=== PATIENT | male | born 1945 | race Caucasian/White ===

== ENCOUNTER 2017-08-01 10:26 | Inpatient (IN) | payer MEDICARE, BC ==
[2017-08-01] MEDS ORDERED: HYDROcodone/APAP 10-325MG 1 EACH TAB PO PRN (13:16)
[2017-08-01] MEDS ORDERED: DICLOFENAC SODIUM GEL 100 GM TUBE TOPICAL PRN (13:20)
[2017-08-01 13:57] LABS: Basophils # (A) 0.1 k/uL (0-0.2); Basophils % (A) 1 %; CHCM 33.6; Eosinophils # (A) 0.2 k/uL (0-0.7); Eosinophils % (A) 2 %; HCT 39.1 % (39.0-53.0); HDW 2.82; HGB 12.9 gm/dL (13.0-17.5); Luc # (Auto) 0.14; Luc % (Auto) 2; Lymphocytes # (A) 1.4 k/uL (1.0-4.8); Lymphocytes % (A) 22 %; MCH 30.7 pg (25.0-35.0); MCHC 33.1 g/dL (31.0-37.0); Mean Platelet Volume 7.9; Monocytes # (A) 0.4 k/uL (0-1.0); Monocytes % (A) 6 %; Neutrophils # (A) 4.3 k/uL (1.3-7.7); Neutrophils % (A) 68 %; RBC 4.21 m/uL (4.30-5.90); RDW 14.9 % (11.5-15.5); WBC 6.4 k/uL (3.8-10.6); WBC (Perox) 7.11
[2017-08-01 14:07] LABS: Calcium 9.6 mg/dL (8.4-10.2); Potassium 4.2 mmol/L (3.5-5.1); Total Bilirubin 0.6 mg/dL (0.2-1.3); Total Protein 6.8 g/dL (6.3-8.2)
[2017-08-01 14:12] LABS: INR 1.1 (<1.2); Prothrombin Time 10.8 sec (9.0-12.0)
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
[2017-08-01 14:26] VITALS: BMI 29.1
[2017-08-01] MEDS: 0.9% NACL WITH KCL 20 MEQ/L 1,000 ML IV SCH ×2 (14:57→21:23)
[2017-08-01] MEDS: HYDROcodone/APAP 10-325MG 1 EACH TAB PO PRN ×2 (15:59→21:23)
[2017-08-01] MEDS: PANTOPRAZOLE 40 MG TABLET PO SCH (17:57)
[2017-08-01] MEDS: amLODIPine 5 MG TAB PO SCH (20:25)
[2017-08-01] MEDS: HYDROCHLOROTHIAZIDE 25 MG TAB PO SCH (20:25)
[2017-08-01] MEDS: LATANOPROST 0.005% OPHTH DROPS 2.5 ML BTL LEFT EYE SCH (20:25)
[2017-08-01 23:28] VITALS: RESP 18
[2017-08-02] MEDS: HYDROcodone/APAP 10-325MG 1 EACH TAB PO PRN ×3 (05:05→18:22)
[2017-08-02] MEDS: 0.9% NACL WITH KCL 20 MEQ/L 1,000 ML IV SCH (05:11)
[2017-08-02 08:50] LABS: Basophils % (A) 1 %; CH 31.9; CHCM 33.6; Eosinophils # (A) 0.2 k/uL (0-0.7); Eosinophils % (A) 4 %; HCT 37.8 % (39.0-53.0); HDW 2.93; HGB 12.1 gm/dL (13.0-17.5); Luc # (Auto) 0.15; Luc % (Auto) 3; Lymphocytes # (A) 1.3 k/uL (1.0-4.8); Lymphocytes % (A) 25 %; MCH 30.5 pg (25.0-35.0); MCV 95.5 fL (80.0-100.0); Mean Platelet Volume 6.8; Monocytes # (A) 0.4 k/uL (0-1.0); Monocytes % (A) 7 %; Neutrophils # (A) 3.2 k/uL (1.3-7.7); Neutrophils % (A) 61 %; RBC 3.96 m/uL (4.30-5.90); RDW 13.9 % (11.5-15.5); WBC 5.3 k/uL (3.8-10.6); WBC (Perox) 5.11
[2017-08-02] MEDS ORDERED: NON-FORMULARY DRUG (Fish Oil/Dha/Epa [Fish Oil 1,200 Mg Fish Oil] 1 CAP) PO SCH (09:00)
[2017-08-02 09:09] LABS: ALT 35 U/L (21-72); AST 21 U/L (17-59); Alkaline Phosphatase 70 U/L (38-126); Anion Gap 6 mmol/L; Blood Urea Nitrogen 20 mg/dL (9-20); Carbon Dioxide 27 mmol/L (22-30); Chloride 107 mmol/L (98-107); Glucose 95 mg/dL (74-99); Non-African American GFR(MDRD) 51 (>60 ml/min/1.73 sqM); Potassium 4.6 mmol/L (3.5-5.1); Sodium 140 mmol/L (137-145); Total Bilirubin 0.5 mg/dL (0.2-1.3); Total Protein 5.9 g/dL (6.3-8.2)
[2017-08-02 09:23] LABS: INR 1.1 (<1.2); Prothrombin Time 11.1 sec (9.0-12.0)
[2017-08-02] MEDS: PANTOPRAZOLE 40 MG TABLET PO SCH ×2 (09:34→16:54)
[2017-08-02] MEDS: LOSARTAN 50 MG TAB PO SCH (09:34)
[2017-08-02] MEDS: CLOTRIMAZOLE 1% CREAM 15 GM TUBE TOPICAL SCH (09:34)
[2017-08-02] MEDS: amLODIPine 5 MG TAB PO SCH ×2 (09:34→21:29)
--- NOTE | 2017-08-02 11:06 | P.PN ---
Subjective Progress Note Date: 08/02/17 08/01/2017 72-year-old male who was directed admitted to [facility] after seeing his PCP, Dr. Landa in the office for fatigue, decreased appetite, and weight loss. The patient has a history of hepatitis C. He states he was injured in a football accident in the 1960s and required surgery on his right femur. He states he contracted Hepatitis C from a blood transfusion he received in the hospital. He also has a history of hypertension, GERD, chronic back pain. Recent blood work completed at Dr. Brooke office reveals alphafetoprotein of 1.1 from December 2016. Labs from June 2017 include: Hepatitis C IgG antibody was reactive, detected Hepatitis C Virus RNA, Quantatitive hepatitis C RNA of 5, 403,060. Labs from July 2017 include BUN 19, Creatinine 1.50, Bilirubin 0.4 , AST 24, ALT 42, alk phos 74, WBC 5.7, Hbg 11.7, PLT 179. The patient underwent CT of the abdomen on 07/22/2017 which revealed focal area of hypoattenuation near the fissue for the falciform ligament with adjacent capsular retraction that may represent hepatic fibrosis. A right hepatic lobe lesion was seen. Further evaluation with MRI was recommended for possibility of hepatocellular carcinoma. CT also revealed portal venous hypertension and small esophageal and gastric hepatic varices. The patient states over the last 3 months, he has lost approximately 30 pounds. Initially, he states he was intentionally trying to lose weight, but now he is losing weight without trying. He states he does not have an appetite and can only have a small amount of food because he feels "stuffed". Denies abdominal pain, distention, or bloating. He denies vomiting but states after he eats he does experience slight nausea on occasion. He states he feels very weak and feels fatigued most of the time. He denies chest pain or pressure. Denies shortness of breath. 08/02/2017 Patient seen and evaluated at the bedside on rounds with Dr. Landa. Patient states he is feeling well this morning, but states he is unable to eat very much because he is having abdominal pain and discomfort and states he doesnt have much of an appetite. States everything tastes like cardboard. Denies nausea or vomiting at this time. Dietary has been consulted for further evaluation. Patient's blood work this morning reveals hemoglobin of 12.1, WBC 5.3, INR 1.1, sodium 140, potassium 4.6, BUN 20, creatinine 1.36. Alpha- fetoprotein tumor marker 2.0. Additional hepatitis blood work remains in process. The patient's vital signs remained stable. He is afebrile. He is maintaining oxygen saturation greater than 92% on room air. GI has been consulted for further evaluation. Objective - Vital Signs Vital signs: Vital Signs Temp 97.3 F L 08/02/17 07:00 Pulse 66 08/02/17 07:00 Resp 18 08/02/17 07:00 BP 107/61 08/02/17 07:00 Pulse Ox 98 08/02/17 07:00 Intake & Output 08/01/17 08/02/17 08/02/17 18:59 06:59 18:59 Intake Total 1175 240 Output Total 300 2000 200 Balance -300 -825 40 Weight 97.5 kg 97.5 kg Intake: Oral 1175 240 Output: Urine 300 2000 200 Other: # Voids 1 - Exam GENERAL: This is a 72-year-old male in no apparent distress at the time of examination. Pleasant and cooperative. HEENT: Head is atraumatic, normocephalic. Pupils are equal, round, and reactive to light. Sclerae anicteric. Conjunctivae are clear. Mucus membranes of the mouth are moist. Neck is supple. RESPIRATORY: Clear to ausculation. No wheezes, rales, or rhonchi. No use of accessory muscles. Patient maintaining oxygen saturation greater than 92% on room air. No chest wall tenderness is noted on palpation or with deep breathing. CARDIOVASCULAR: Regular rate and rhythm. S1 and S2 noted. No systolic or diastolic murmur auscultated. No JVD noted. No S3 or S4 noted. GASTROINTESTINAL: Upon percussion, liver appears enlarged. Abdomen soft, round, and obese. Normal active bowel sounds auscultated X 4 quadrants. No pain or tenderness noted upon palpation. INTEGUMENTARY: No cyanosis. No jaundice. No rashes noted. No cellulitis noted. EXTREMITIES: 2+ peripheral pulses. No evidence of peripheral edema. No calf tenderness noted. NEUROLOGIC: Cranial nerves II-XII intact. PSYCHIATRIC: Awake, alert, and oriented X 3. Appropriate affect. Intact judgement and insight. - Labs CBC & Chem 7: 08/02/17 07:57 08/02/17 07:57 Labs: Abnormal Lab Results - Last 24 Hours (Table) 08/01/17 08/01/17 08/02/17 Range/Units 13:33 13:33 07:57 RBC 4.21 L 3.96 L (4.30-5.90) m/uL Hgb 12.9 L 12.1 L (13.0-17.5) gm/dL Hct 37.8 L (39.0-53.0) % BUN 23 H (9-20) mg/dL Creatinine 1.44 H (0.66-1.25) mg/dL Total Protein (6.3-8.2) g/dL Albumin (3.5-5.0) g/dL 08/02/17 Range/Units 07:57 RBC (4.30-5.90) m/uL Hgb (13.0-17.5) gm/dL Hct (39.0-53.0) % BUN (9-20) mg/dL Creatinine 1.36 H (0.66-1.25) mg/dL Total Protein 5.9 L (6.3-8.2) g/dL Albumin 3.3 L (3.5-5.0) g/dL Assessment and Plan Plan: ASSESSMENT: History of Hepatitis C, contracted from blood transfusion, with possible reactivation of virus Protein calorie malnutrition with weight loss of 30 pounds in 3 months Generalized weakness and fatigue, possibly secondary to disease process/ comorbidities Chronic kidney disease, stage III, eGFR 48 on admission Chronic back pain secondary to degenerative disc disease History of coronary artery disease with triple vessel disease Gastroesophageal reflux disease Essential hypertension History of alcohol abuse, in remission, 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 Await further recommendations. -Continue IV fluid at 125 mL an hour, will discontinue potassium chloride in IV -Dietary consulted. Await further recommendations. -Per Dr. Landa, patient is a DNR -Regular diet -Home meds as appropriate -Monitor labs -GI prophylaxis: Protonix 40mg PO BID -DVT prophylaxis: Venodyne's to bilateral lower extremities -Monitor vital signs and address as appropriate -Discharge planning: patient to return home when stable -Further recommendations pending patient's course Nurse practitioner note has been reviewed by physician. Signing provider agrees with the documented findings, assessment, and plan of care.
[2017-08-02] MEDS ORDERED: MULTIVITAMINS, THERA 1 EACH TAB PO SCH (12:00)
[2017-08-02] MEDS: SODIUM CHLORIDE 0.9% 1,000 ML IV SCH ×2 (12:31→21:28)
[2017-08-02] MEDS ORDERED: DIAZEPAM 5 MG TAB PO STA (12:34)
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
--- NOTE | 2017-08-02 15:15 | MR ---
EXAMINATION TYPE: MR liver wo/w con DATE OF EXAM: 08/02/2017 COMPARISON: Outside CT abdomen and pelvis report July 22, 2017 HISTORY: Abd pain, weakness, loss of appetite, abn CT CONTRAST: Standard multiplanar, multisequence MRI departmental protocol utilizing 9 mL intravenous Gadavist makayla olinium contrast. Imaging is performed of the abdomen focusing on the liver. FINDINGS: LIVER: Liver is overall small in size. No significant signal dropout is seen to suggest fatty infiltr ation. In the lateral segment left hepatic lobe there is subcentimeter thin-walled cyst seen best series 601 image 33 more centrally near interlobar fissure there is 1.3 cm round lesion at T2 hyperintensity an d subtle T1 hypointensity, dynamic images show peripheral nodular enhancement with some progressive c entripetal filling felt present, a small hemangioma is favored. Some capsular retraction is noted. Be cause of small size and location near diaphragm causing respiratory motion artifact lesion is somewha t suboptimally evaluated. In the lateral segment left hepatic lobe there is blooming artifact presumed from calcification or ca lcified or rim calcified lesion measuring almost 2.0 cm on image 30 series 601 presumed benign. There is punctate enhancing focus right hepatic lobe laterally measuring 3 mm image 19 series 601 too small to further characterize, possible tiny flash filling hemangioma, are few additional punctate e nhancing T2 hyperintense lesions scattered throughout right hepatic lobe. Gallbladder is not visualized and presumed surgically absent. No suspicious intrahepatic or extrahepa tic biliary dilatation is seen. There is patent hepatic artery. There is patent main portal vein whic h is not suspiciously dilated. There are patent hepatic veins draining into IVC. No surrounding ascit es is noted. Other: There is moderate size hiatal hernia. There is some irregular wall thickening and hiatal mary kay ia, consider direct visualization. Spleen is mildly enlarged at 13.7 cm on long axis coronal image 23 . There is some fat replaced atrophy of pancreas. There is some cortical thinning in both kidneys wit h central parapelvic simple cyst. Adrenal glands are felt within normal limits. There is no suspiciou s bowel dilatation. There is no concerning abdominal fluid collection. There is ectatic course to abd ominal aorta. There is slight dextro convex scoliosis. There is moderate multilevel spurring and disc space narrowing. Facet arthropathy is seen at several levels in the lumbar spine contributing to mod erate-sized level spinal canal effacement or stenosis. No suspicious abdominal adenopathy is seen. IMPRESSION: Small liver is confirmed. Nonspecific 1.3 cm lesion near falciform ligament correlates with outside C T report, suboptimally evaluated, imaging characteristics not consistent with typical HCC, slightly f avor hemangioma given progressive centripetal filling on dynamic postcontrast imaging, would advise s hort-term MRI follow-up in 3-6 months time to assess. Correlate with palpable fetoprotein which would increase suspicion if elevated.
--- NOTE | 2017-08-02 16:05 | US ---
EXAMINATION TYPE: US abdomen complete DATE OF EXAM: 08/02/2017 COMPARISON: NONE CLINICAL HISTORY: Hepatomegaly. Hep C, loss of appetite, weight loss, occasional abdomen, history of cholecystectomy EXAM MEASUREMENTS: Liver Length: 15.0 cm Gallbladder Wall: surgically absent CBD: 0.5 cm Spleen: 14.2 cm Right Kidney: 11.8 x 5.5 x 5.1 cm Left Kidney: 10.8 x 5.1 x 5.6 cm Pancreas: obscured by overlying midline bowel gas Liver: visualized portions appear somewhat heterogeneous, scanned intercostally, limited by rib shad owing Gallbladder: surgically absent Evidence for sonographic Kennedy's sign: no CBD: visualized portions wnl, limited by overlying bowel gas Spleen: enlarged at 14.2cm, limited by rib shadowing Right Kidney: 2.1 x 1.8 x 2.1cm exophytic hypoechoic area lateral mid pole, cortical thinning Left Kidney: no hydro or masses seen, cortical thinning, inferior pole limited by overlying bowel ga s Upper IVC: wnl Abd Aorta: mostly obscured by overlying midline bowel gas, visualized portions of distal aorta appea r wnl There is no ascites. Kidneys show normal cortical medullary differentiation. At the upper pole the right kidney hypoechoic focus is inadequately characterized. Cortical thinning is noted in both kidneys. IMPRESSION: Exam is limited. There may be underlying hepatocellular disease, hepatic steatosis. Corre late for possible underlying medical renal disease. Indeterminate hypoechoic focus at the upper pole of right kidney. Splenomegaly.
[2017-08-02] MEDS: LATANOPROST 0.005% OPHTH DROPS 2.5 ML BTL LEFT EYE SCH (21:29)
[2017-08-02] MEDS: HYDROCHLOROTHIAZIDE 25 MG TAB PO SCH (21:29)
[2017-08-02 22:35] VITALS: TEMP 98.2
[2017-08-03] MEDS: HYDROcodone/APAP 10-325MG 1 EACH TAB PO PRN (05:54)
[2017-08-03] MEDS: SODIUM CHLORIDE 0.9% 1,000 ML IV SCH ×2 (05:54→10:07)
[2017-08-03 07:30] VITALS: BP 121/68; PULSE 68
[2017-08-03 08:06] LABS: Basophils % (A) 1 %; CH 30.5; CHCM 32.8; Eosinophils # (A) 0.2 k/uL (0-0.7); Eosinophils % (A) 4 %; HCT 34.3 % (39.0-53.0); HDW 2.82; HGB 11.5 gm/dL (13.0-17.5); Luc # (Auto) 0.12; Luc % (Auto) 2; Lymphocytes # (A) 1.3 k/uL (1.0-4.8); Lymphocytes % (A) 23 %; MCH 31.4 pg (25.0-35.0); MCHC 33.6 g/dL (31.0-37.0); MCV 93.7 fL (80.0-100.0); Mean Platelet Volume 7.6; Monocytes # (A) 0.4 k/uL (0-1.0); Monocytes % (A) 8 %; Neutrophils # (A) 3.7 k/uL (1.3-7.7); Neutrophils % (A) 64 %; RBC 3.66 m/uL (4.30-5.90); RDW 15.1 % (11.5-15.5); WBC 5.8 k/uL (3.8-10.6); WBC (Perox) 6.01
[2017-08-03 08:30] LABS: ALT 38 U/L (21-72); AST 19 U/L (17-59); Alkaline Phosphatase 71 U/L (38-126); Anion Gap 6 mmol/L; Blood Urea Nitrogen 18 mg/dL (9-20); Calcium 8.6 mg/dL (8.4-10.2); Carbon Dioxide 24 mmol/L (22-30); Chloride 109 mmol/L (98-107); Glucose 100 mg/dL (74-99); Non-African American GFR(MDRD) 53 (>60 ml/min/1.73 sqM); Sodium 139 mmol/L (137-145); Total Bilirubin 0.6 mg/dL (0.2-1.3); Total Protein 5.6 g/dL (6.3-8.2)
[2017-08-03 08:37] LABS: Potassium 4.5 mmol/L (3.5-5.1)
[2017-08-03] MEDS: LOSARTAN 50 MG TAB PO SCH (08:55)
[2017-08-03] MEDS: amLODIPine 5 MG TAB PO SCH (08:55)
[2017-08-03] MEDS: PANTOPRAZOLE 40 MG TABLET PO SCH (08:55)
[2017-08-03] MEDS: CLOTRIMAZOLE 1% CREAM 15 GM TUBE TOPICAL SCH (08:57)
--- NOTE | 2017-08-03 10:49 | P.DS ---
Providers Date of admission: 08/01/17 10:53 Expected date of discharge: 08/03/17 Attending physician: Jd Landa Consults: 08/01/17 13:04 Consult Physician Routine Consulting Provider: Zachary Verma Consult Reason/Comments: retroactive hepatitis C, possible liver cancer Do you want consulting provider notified?: Yes Primary care physician: Jd Landa Hospital Course: 72-year-old male who was directed admitted to [facility] after seeing his PCP, Dr. Landa in the office for fatigue, decreased appetite, and weight loss. The patient has a history of hepatitis C. He states he was injured in a football accident in the 1960s and required surgery on his right femur. He states he contracted Hepatitis C from a blood transfusion he received in the hospital. He also has a history of hypertension, GERD, chronic back pain. Recent blood work completed at Dr. Brooke office reveals alphafetoprotein of 1.1 from December 2016. Labs from June 2017 include: Hepatitis C IgG antibody was reactive, detected Hepatitis C Virus RNA, Quantatitive hepatitis C RNA of 5, 403,060. Labs from July 2017 include BUN 19, Creatinine 1.50, Bilirubin 0.4 , AST 24, ALT 42, alk phos 74, WBC 5.7, Hbg 11.7, PLT 179. The patient underwent CT of the abdomen on 07/22/2017 which revealed focal area of hypoattenuation near the fissue for the falciform ligament with adjacent capsular retraction that may represent hepatic fibrosis. A right hepatic lobe lesion was seen. Further evaluation with MRI was recommended for possibility of hepatocellular carcinoma. CT also revealed portal venous hypertension and small esophageal and gastric hepatic varices. The patient states over the last 3 months, he has lost approximately 30 pounds. Initially, he states he was intentionally trying to lose weight, but now he is losing weight without trying. He states he does not have an appetite and can only have a small amount of food because he feels "stuffed". Denies abdominal pain, distention, or bloating. He denies vomiting but states after he eats he does experience slight nausea on occasion. Patient underwent MRI of the liver which showed 1.3cm lesion near falciform ligament that was not consistent with typical HCC and was more favorable of a hemangioma. It is recommended that the patient follow-up in 3-6 months with another MRI. The patient was deemed stable for discharge per Dr. Landa. He is to follow up an outpatient basis with Dr. Landa. He is also to follow-up with Dr. Rosa for hepatitis C treatment. DISCHARGE DIAGNOSIS: History of Hepatitis C, contracted from blood transfusion, with reactivation of virus, patient to receive treatment outpatient. MRI of the liver is not suggestive of hepatocellular carcinoma and is more suggestive of a hemangioma. 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 Signing provider agrees with the documented findings, assessment, and plan of care. Patient Condition at Discharge: Stable Plan - Discharge Summary Discharge Rx Participant: No New Discharge Prescriptions: Continue Omeprazole 20 mg PO BID Multivitamins, Thera [Multivitamin (formulary)] 1 tab PO DAILY Losartan Potassium [Cozaar] 100 mg PO DAILY Latanoprost Ophth [Xalatan 0.005%] 1 drop LEFT EYE HS Fish Oil/Dha/Epa [Fish Oil 1,200 mg Fish Oil] 1 cap PO DAILY Hydrochlorothiazide [Hydrodiuril] 25 mg PO HS HYDROcodone/APAP 10-325MG [[place] 10-325] 0.5 - 1 tab PO TID PRN PRN Reason: Pain Econazole 1% Cream [Spectazole] 1 applic TOPICAL DAILY Diclofenac Sodium [Voltaren] 75 mg PO BID amLODIPine [Norvasc] 5 mg PO BID Discharge Medication List Diclofenac Sodium [Voltaren] 75 mg PO BID 08/01/17 [History] Econazole 1% Cream [Spectazole] 1 applic TOPICAL DAILY 08/01/17 [History] Fish Oil/Dha/Epa [Fish Oil 1,200 mg Fish Oil] 1 cap PO DAILY 08/01/17 [History] HYDROcodone/APAP 10-325MG [[place] 10-325] 0.5 - 1 tab PO TID PRN 08/01/17 [ History] Hydrochlorothiazide [Hydrodiuril] 25 mg PO HS 08/01/17 [History] Latanoprost Ophth [Xalatan 0.005%] 1 drop LEFT EYE HS 08/01/17 [History] Losartan Potassium [Cozaar] 100 mg PO DAILY 08/01/17 [History] Multivitamins, Thera [Multivitamin (formulary)] 1 tab PO DAILY 08/01/17 [History ] Omeprazole 20 mg PO BID 08/01/17 [History] amLODIPine [Norvasc] 5 mg PO BID 08/01/17 [History] Follow up Appointment(s)/Referral(s): Camila Hoyos MD [STAFF PHYSICIAN] - 2 Weeks Jd Landa MD [Primary Care Provider] - 08/08/17 (patient needs appointment on Tuesday for [place] refill per Dr Landa) Discharge Disposition: HOME SELF-CARE
--- NOTE | 2017-08-03 10:55 | P.PN ---
Subjective Progress Note Date: 08/03/17 Principal diagnosis: liver mass hepatitis C s/p MRI liver not overly convincing of HCC. AFP unremarkable. Hepatitis C testing still in progress. Objective - Vital Signs Vital signs: Vital Signs Temp 98.2 F 08/03/17 07:00 Pulse 68 08/03/17 07:00 Resp 18 08/03/17 07:00 BP 121/68 08/03/17 07:00 Pulse Ox 94 L 08/03/17 07:00 Intake & Output 08/02/17 08/03/17 08/03/17 18:59 06:59 18:59 Intake Total 480 1075 Output Total 1550 1550 Balance -1070 -475 Intake: Oral 480 1075 Output: Urine 1550 1550 - Exam General appearance: The patient is alert, oriented, in no acute distress. HET: Head is normocephalic and atraumatic. Pupils are equal and reactive. Oropharynx is clear without lesions. Neck: Supple without lymphadenopathy. Trachea midline. Heart: S1 S2. Regular rate and rhythm. Lungs: No crackles or wheezes are heard. Abdomen: Soft, nontender, nondistended with bowel sounds. No peritoneal signs. No palpable organomegaly or masses. Extremities: Normal skin color and turgor. No cyanosis, rash, ulceration, clubbing, or edema. Radial and pedal pulses are 2/4 bilaterally. Neurological: No focal deficits. Strength and sensation are grossly intact. - Labs CBC & Chem 7: 08/03/17 07:38 08/03/17 07:38 Labs: Abnormal Lab Results - Last 24 Hours (Table) 08/02/17 08/02/17 08/03/17 Range/Units 07:57 07:57 07:38 RBC 3.96 L 3.66 L (4.30-5.90) m/uL Hgb 12.1 L 11.5 L (13.0-17.5) gm/dL Hct 37.8 L 34.3 L (39.0-53.0) % Chloride (98-107) mmol/L Creatinine 1.36 H (0.66-1.25) mg/dL Glucose (74-99) mg/dL Total Protein 5.9 L (6.3-8.2) g/dL Albumin 3.3 L (3.5-5.0) g/dL 08/03/17 Range/Units 07:38 RBC (4.30-5.90) m/uL Hgb (13.0-17.5) gm/dL Hct (39.0-53.0) % Chloride 109 H (98-107) mmol/L Creatinine 1.32 H (0.66-1.25) mg/dL Glucose 100 H (74-99) mg/dL Total Protein 5.6 L (6.3-8.2) g/dL Albumin 3.1 L (3.5-5.0) g/dL Assessment and Plan (1) Liver mass Narrative/Plan: Segment IVb near falciform ligament worrisome for neoplastic process possible hepatocellular carcinoma possible hemagioma per MRI with normal AFP marker Current Visit: Yes Status: Acute Code(s): R16.0 - HEPATOMEGALY, NOT ELSEWHERE CLASSIFIED SNOMED Code(s): 189545757 (2) Hepatitis C Current Visit: Yes Status: Chronic Code(s): B19.20 - UNSPECIFIED VIRAL HEPATITIS C WITHOUT HEPATIC COMA SNOMED Code(s): 82323483 (3) Unintentional weight loss Current Visit: Yes Status: Acute Code(s): R63.4 - ABNORMAL WEIGHT LOSS SNOMED Code(s): 552708849 Plan: 1. DC per medicine. MRI results discussed with patient. Liver biopsy not indicated at this time. RTO 3 weeks outpatient hepatitis C treatment will be discussed. Repeat MRI 3-6 months. Assessment and plan of care discussed with Dr. Hoyos
[2017-08-03 15:47] LABS: HCV Qualitative Result DETECTED (Not detected)
== END 2017-08-03 12:01 | disposition home or self-care (01) | DRG 442 ==
LOC: 4MS4W 10:53
PROVIDERS: ADMIT Family Medicine; ATTEND Family Medicine
DX: B19.20 Unspecified viral hepatitis C without hepatic coma (principal); E46 Unspecified protein-calorie malnutrition; K76.6 Portal hypertension; N18.3 Chronic kidney disease, stage 3 (moderate); I85.00 Esophageal varices without bleeding; R16.0 Hepatomegaly, not elsewhere classified; R53.1 Weakness; I12.9 Hypertensive chronic kidney disease with stage 1 through stage 4 chronic kidney disease, or unspecified chronic kidney disease; K21.9 Gastro-esophageal reflux disease without esophagitis; I25.10 Atherosclerotic heart disease of native coronary artery without angina pectoris; M54.9 Dorsalgia, unspecified; F10.11 Alcohol abuse, in remission; G89.29 Other chronic pain; Z66 Do not resuscitate; H40.9 Unspecified glaucoma; M19.90 Unspecified osteoarthritis, unspecified site; Z80.42 Family history of malignant neoplasm of prostate; Z87.891 Personal history of nicotine dependence; Z79.899 Other long term (current) drug therapy; Z90.49 Acquired absence of other specified parts of digestive tract; Z91.048 Other nonmedicinal substance allergy status
CPT/HCPCS: 74183; 76700; 80053; 82105; 82378; 85025; 85610; 87522; 87902

== ENCOUNTER → 2018-07-10 | Outpatient (CLI) | payer MEDICARE, BC ==
--- NOTE | 2018-07-10 09:32 | XR ---
EXAMINATION TYPE: XR foot complete RT DATE OF EXAM: 07/10/2018 COMPARISON: NONE HISTORY: Right first digit pain TECHNIQUE: Three views are submitted. FINDINGS: There is complete loss of joint space of the first MTP with hypertrophic spurring compatible severe a rthritic change. No destructive changes. Osseous structures intact. No acute fracture. No dislocation. There is a metallic foreign body along the superior margin of the calcaneus measuring approximately 6 mm. Small plantar calcaneal spur noted . IMPRESSION: 1. 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 2. There is a small metallic foreign body superior to the posterior margin of the calcaneus.
--- NOTE | 2018-07-10 13:22 | NM ---
EXAMINATION TYPE: NM bone 3 phase DATE OF EXAM: 07/10/2018 COMPARISON: 07/10/2018 HISTORY: Pain right foot Triple phase bone scintigraphy was performed following the injection of 5.5 mCi Tc 99m MDP. Immediat e images and 3 hours post injection images acquired. FINDINGS: There is similar flow bilaterally Soft tissue uptake demonstrates increased flow to the mid foot on the right and hindfoot on the left. Delayed imaging demonstrates faint uptake involving the first MTP joint. There is more intense abnorm al uptake involving the talotibial tarsal junction. IMPRESSION: 1. Findings involving the right foot are nonspecific but most likely post arthritic. 2. Findings involving the left foot are nonspecific x-ray correlation suggested with intense uptake r egion of the hind to midfoot.
== END | disposition home or self-care (01) ==
LOC: RADNMMAIN 07:01
PROVIDERS: ATTEND Podiatrist Foot & Ankle Surgery
DX: M19.071 Primary osteoarthritis, right ankle and foot (principal); S90.851A Superficial foreign body, right foot, initial encounter; M86.171 Other acute osteomyelitis, right ankle and foot
CPT/HCPCS: 73630; 78315; A9503

== ENCOUNTER 2023-02-22 12:22 | Emergency (ER) | payer MEDICARE, BC ==
[2023-02-22] MEDS ORDERED: MECLIZINE 12.5 MG TAB PO STA (12:54)
[2023-02-22] MEDS ORDERED: SODIUM CHLORIDE 0.9% 1,000 ML IV STA (12:54)
[2023-02-22 12:55] LABS: Glucose,Whole Blood 156 mg/dL (70-110)
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
[2023-02-22 13:26] LABS: Basophils % (A) 0 %; Eosinophils # (A) 0.1 k/uL (0-0.7); Eosinophils % (A) 2 %; HGB 14.4 gm/dL (13.0-17.5); Lymphocytes # (A) 1.5 k/uL (1.0-4.8); Lymphocytes % (A) 22 %; MCH 30.3 pg (25.0-35.0); MCHC 33.6 g/dL (31.0-37.0); MCV 90.4 fL (80.0-100.0); Mean Platelet Volume 8.1; Monocytes # (A) 0.5 k/uL (0-1.0); Monocytes % (A) 7 %; Neutrophils # (A) 4.4 k/uL (1.3-7.7); Neutrophils % (A) 65 %; Platelet Count 102 k/uL (150-450); RBC 4.76 m/uL (4.30-5.90); RDW 13.9 % (11.5-15.5); WBC 6.8 k/uL (3.8-10.6)
[2023-02-22 13:39] LABS: ALT 17 U/L (4-49); AST 21 U/L (17-59); African American GFR (CKD) 46 (>60 ml/min/1.73 sqM); Albumin 4.1 g/dL (3.5-5.0); Alkaline Phosphatase 93 U/L (38-126); Anion Gap 13 mmol/L; Blood Urea Nitrogen 26 mg/dL (9-20); Carbon Dioxide 23 mmol/L (22-30); Chloride 103 mmol/L (98-107); Glucose 137 mg/dL (74-99); Non-African American GFR(CKD) 40 (>60 ml/min/1.73 sqM); Potassium 4.1 mmol/L (3.5-5.1); Sodium 139 mmol/L (137-145); Total Bilirubin 0.6 mg/dL (0.2-1.3); Total Protein 7.1 g/dL (6.3-8.2)
[2023-02-22 13:41] LABS: Appearance,Urine Clear (Clear); Bilirubin,Urine Negative (Negative); Blood,Urine Negative (Negative); Color,Urine Light Yellow; Glucose,Urine (UA) Negative (Negative); Ketones,Urine Negative (Negative); Leukocyte Esterase,Urine Negative (Negative); Nitrite,Urine Negative (Negative); Protein,Urine Negative (Negative); Specific Gravity,Urine 1.005 (1.001-1.035); Urobilinogen,Urine <2.0 mg/dL (<2.0)
[2023-02-22 13:45] LABS: Prothrombin Time 10.7 sec (9.0-12.0)
--- NOTE | 2023-02-22 13:46 | CT ---
EXAMINATION TYPE: CT brain wo con DATE OF EXAM: 02/22/2023 COMPARISON: None HISTORY: Dizziness CT DLP: 1247.4 mGycm Automated exposure control for dose reduction was used. FINDINGS: There is a large fluid-filled structure within the anterior temporal fossa on the right measuring 3.3 x 5.1 cm extending into the lateral margin of the right temporal bone. There is moderate generalized degenerative change. Greater prominence of the CSF overlying the cerebr al convexities Low attenuation in the white matter is nonspecific but most typical of remote ischemic white matter c hange. Craniocervical junction is maintained. Orbits are symmetric. Metallic foreign body air seen bi laterally within the orbits. Calvarium intact. Correlate for chronic mastoiditis. IMPRESSION: 1 LARGE ARACHNOID CYST INVOLVING THE RIGHT ANTERIOR TEMPORAL FOSSA EXTENDING ALONG THE RIGHT CEREBRAL CONVEXITY. THERE IS MASS EFFECT WITH SLIGHT RIGHT TO LEFT SHIFT. PATIENT WOULD BENEFIT FROM AN MRI. 2. CSF PROMINENCE GREATER OVERLYING THE RIGHT CEREBRAL CONVEXITY WITH A THICKNESS OF 9 MM MAY REPRESE NT A CHRONIC SUBDURAL HEMATOMA OR HYGROMA. CORRELATE CLINICALLY. NO ACUTE HEMORRHAGE.
[2023-02-22 16:57] VITALS: BP 125/88; PULSE 91; RESP 18; TEMP 98.1
== END 2023-02-22 16:57 | disposition other institution (70) ==
LOC: EC 12:22
DX: G93.0 Cerebral cysts (principal); I25.10 Atherosclerotic heart disease of native coronary artery without angina pectoris; K21.9 Gastro-esophageal reflux disease without esophagitis; I10 Essential (primary) hypertension; M19.90 Unspecified osteoarthritis, unspecified site; Z88.8 Allergy status to other drugs, medicaments and biological substances; Z91.048 Other nonmedicinal substance allergy status; Z79.899 Other long term (current) drug therapy
CPT/HCPCS: 36415; 70450; 80053; 81003; 83605; 84484; 85025; 85610; 93005; 96360; 99285

== ENCOUNTER → 2023-06-09 | Outpatient (CLI) | payer MEDICARE, BC ==
[~2023-06-09] MED LIST: REGADENOSON 0.4 MG/5 ML SYRINGE IV PRN
--- NOTE | 2023-06-09 12:53 | NM ---
EXAMINATION TYPE: NM stress lexiscan cardiolite DATE OF EXAM: 06/09/2023 COMPARISON: NONE CLINICAL INDICATION: Male, 78 years old with history of R07.9 chest pain; TECHNIQUE: After the intravenous administration of 9.86 mCi Tc 99m Sestamibi - Cardiolite resting SP ECT images acquired 45 minutes post injection. The patient received 0.4mg Lexiscan, 25.1 mCi Tc 99m Sestamibi - Stress images obtained [address] injection FINDINGS: Review of stress and rest SPECT images demonstrates no distinct perfusion abnormality. Gated analysi s shows normal wall motion with an estimated left ventricular ejection fraction of 50 %. IMPRESSION: No scintigraphic evidence for reversible ischemia.
--- NOTE | 2023-06-09 15:02 | CA ---
Lexiscan Nuclear Stress Test Report Name: Paulie Mcfadden Exam Date: 06/09/2023 10:51 Exam Location: [place] Stress Ht (in): 71 Wt (lb): 230 BSA: 2.24 Ordering Phys: Rachael Odonnell DO Referring Phys: rachael odonnell,, Technologist: Willian Ferguson Age: 78 Gender: M : 1945 Procedure CPT: Indications: R07.9 CHEST PAIN ICD-10 Codes: Patient History: Medications: Meds past 24 hrs: Pretest Chest Pain: STRESS TEST Lexiscan Protocol Exercise Duration (min:sec): 02:[address] Depressions (mm): Angina Score: Marina Score: Resting HR (bpm): 73 Peak HR (bpm): 91 Resting BP (mmHg): 156 / 86 Peak BP (mmHg): 168 / 81 MPHR: 140 Target HR: 119 % MPHR: 65 METS: 1.0 Total Dose: Peak Dose: Atropine: Double Product: 18133 BP Response: Stress Termination: PROTOCOL COMPLETE Stress Symptoms: No chest pain or symptoms Stress Summary: ECG ANALYSIS Resting ECG: Stress ECG: CONCLUSIONS At baseline EKG showed normal sinus rhythm, left axis deviation, no significant ST or T wave abnormalities, poor R-wave progression. Patient recieved IV infusion of Lexiscan 0.4mg and at peak infusion EKG showed no significant change from baseline. Conclusions: 1. Normal EKG response to Lexiscan infusion 2. Nuclear imaging to be reported separately. Dr. Alex Gonzalez DO (Electronically Signed) Final Date: 09 June 2023 15:01
== END | disposition home or self-care (01) ==
LOC: RADNMMAIN 08:52
PROVIDERS: ATTEND Family Medicine
DX: R07.9 Chest pain, unspecified (principal)
CPT/HCPCS: 93017; 78452; A9500; J2785

== ENCOUNTER 2023-07-18 11:43 | Emergency (ER) | payer MEDICARE, BC ==
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
[2023-07-18 12:06] VITALS: BP 141/79; PULSE 88; RESP 18; TEMP 97.8
[2023-07-18 12:21] LABS: Basophils % (A) 0 %; Eosinophils # (A) 0.3 k/uL (0-0.7); Eosinophils % (A) 4 %; HCT 41.7 % (39.0-53.0); HGB 14.2 gm/dL (13.0-17.5); Lymphocytes # (A) 2.1 k/uL (1.0-4.8); Lymphocytes % (A) 28 %; MCH 31.9 pg (25.0-35.0); MCV 93.9 fL (80.0-100.0); Monocytes # (A) 0.5 k/uL (0-1.0); Monocytes % (A) 6 %; Neutrophils # (A) 4.3 k/uL (1.3-7.7); Neutrophils % (A) 59 %; Platelet Count 153 k/uL (150-450); RBC 4.44 m/uL (4.30-5.90); WBC 7.3 k/uL (3.8-10.6)
[2023-07-18 12:35] LABS: ALT 18 U/L (4-49); African American GFR (CKD) 33 (>60 ml/min/1.73 sqM); Alcohol <10 mg/dL; Anion Gap 11 mmol/L; Blood Urea Nitrogen 31 mg/dL (9-20); Calcium 8.7 mg/dL (8.4-10.2); Carbon Dioxide 21 mmol/L (22-30); Chloride 103 mmol/L (98-107); Glucose 105 mg/dL (74-99); Non-African American GFR(CKD) 29 (>60 ml/min/1.73 sqM); Sodium 135 mmol/L (137-145)
[2023-07-18 13:14] LABS: AST 37 U/L (17-59); Alkaline Phosphatase 73 U/L (38-126); Potassium 5.1 mmol/L (3.5-5.1)
--- NOTE | 2023-07-18 15:17 | CT ---
EXAMINATION TYPE: CT brain wo con CT DLP: 1205.1 mGycm, Automated exposure control for dose reduction was used. DATE OF EXAM: 07/18/2023 3:10 PM COMPARISON: Prior CT Brain from 02/22/2023 . CLINICAL INDICATION:Male, 78 years old with history of ams, ams TECHNIQUE: Brain: Multiple axial CT images of the brain were obtained without IV contrast. Coronal and sagittal reformats reviewed. 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 Prominent right middle cr anial fossa arachnoid cyst identified measuring up to 4.2 cm again. There is again mass effect upon t he right upper lobe. Ventricular system: Mild effacement of the right lateral ventricle compared to the left. Cerebral parenchyma: Cerebral atrophy. No acute intraparenchymal hemorrhage . The nobles-white junctio n is well differentiated. Cerebellum: Unremarkable. Mass effect: Similar midline shift to the left of 3 mm. Intracranial vasculature: Atherosclerotic calcifications of the intracranial vessels. Soft tissues: Normal. Calvarium/osseous structures: No depressed skull fracture. Paranasal sinuses and mastoid air cells: Clear Visualized orbits: Orbital contents are intact. IMPRESSION: 1. Similar CSF prominence greater overlying the right cerebral convexity which may represent a chron ic hygroma. 3 mm of midline shift to the left again noted. No acute hemorrhage. 2. Arachnoid cyst involving the right middle cranial fossa redemonstrated. 3. Nonspecific white matter changes likely related to chronic small vessel ischemic disease.
[2023-07-18 15:57] LABS: Appearance,Urine Clear (Clear); Bilirubin,Urine Negative (Negative); Blood,Urine Negative (Negative); Color,Urine Light Yellow; Glucose,Urine (UA) Negative (Negative); Ketones,Urine Negative (Negative); Leukocyte Esterase,Urine Negative (Negative); Nitrite,Urine Negative (Negative); Protein,Urine Negative (Negative); Specific Gravity,Urine 1.011 (1.001-1.035); Urobilinogen,Urine <2.0 mg/dL (<2.0)
[2023-07-18 16:30] LABS: Amphetamine Screen,Urine Not Detected (NotDetected); Barbiturate Screen,Urine Not Detected (NotDetected); Benzodiazepines Screen,Urine Detected (NotDetected); Cocaine Screen,Urine Not Detected (NotDetected); Methadone Screen, Urine Not Detected (NotDetected); Opiate Screen,Urine Detected (NotDetected); Oxycodone Screen, Urine Not Detected (NotDetected); Phencyclidine Screen,Urine Not Detected (NotDetected); Tricyclic Antidepressant,Urine Not Detected (NotDetected); Urn Cannabinoid Scrn Not Detected (NotDetected)
[2023-07-18] MEDS ORDERED: LORazepam 2 MG/ML INJ IV STA (20:05)
== END 2023-07-19 07:25 ==
LOC: EC 11:43
DX: F29 Unspecified psychosis not due to a substance or known physiological condition (principal); I10 Essential (primary) hypertension; I25.10 Atherosclerotic heart disease of native coronary artery without angina pectoris; J44.9 Chronic obstructive pulmonary disease, unspecified; M19.90 Unspecified osteoarthritis, unspecified site; K21.9 Gastro-esophageal reflux disease without esophagitis; Z79.899 Other long term (current) drug therapy; Z88.8 Allergy status to other drugs, medicaments and biological substances; Z91.09 Other allergy status, other than to drugs and biological substances; Z79.1 Long term (current) use of non-steroidal anti-inflammatories (NSAID); Z90.49 Acquired absence of other specified parts of digestive tract; Z20.822 Contact with and (suspected) exposure to COVID-19
CPT/HCPCS: 82075; 36415; 80053; 84443; 82140; 85025; 81003; 80306; 87635; 70450; 99285; 96374; G0480; J2060; 80320

== ENCOUNTER → 2023-10-25 | Outpatient (CLI) | payer MEDICARE, BC ==
--- NOTE | 2023-11-01 09:50 | US ---
EXAMINATION TYPE: US kidneys/renal and bladder DATE OF EXAM: 10/25/2023 COMPARISON: US 08/02/2017 CLINICAL INDICATION: Male, 78 years old with history of N18.32 CHRONIC KIDNEY DISEASE, STAGE 3B; Hx H epatitis C; right renal cyst; Patient denies any signs or symptoms at this time EXAM MEASUREMENTS: Right Kidney: 12.0 x 5.2 x 2.6 cm Left Kidney: 11.0 x 4.2 x 4.2 cm Post Void Residual Volume: NA mL Bladder volume on report page in PACs is the prostatic volume = 100 mL Right Kidney: Cyst = 2.7 x 3.0 x 3.4 centimeters with irregular mural thickening. Or focal medullary differentiation maintained. Left Kidney: No hydronephrosis or mass identified. Cortical medullary differentiation maintained. Bladder: Not fully distended Bilateral Jets seen: unable to assess Normal Post Void Residual: NA There is no evidence for hydronephrosis at this point in time. No nephrolithiasis is seen. IMPRESSION: 1. Complex right renal cyst. This can be further evaluated with MRI renal mass protocol. 2. Atrophic left kidney.
== END | disposition home or self-care (01) ==
LOC: RADUSWWP 13:08
PROVIDERS: ATTEND Internal Medicine
DX: N26.1 Atrophy of kidney (terminal) (principal); N28.1 Cyst of kidney, acquired; N18.32 Chronic kidney disease, stage 3b; Z86.19 Personal history of other infectious and parasitic diseases
CPT/HCPCS: 76770